=== PATIENT | female | born 1990 | race Caucasian/White ===

== ENCOUNTER 2020-11-11 21:29 | Emergency (ER) | payer MEDICAID, SELFPAY ==
[2020-11-12 01:08] VITALS: BP 144/94; PULSE 96; RESP 20; TEMP 36.7; O2SAT 98; BMI 20.6
--- NOTE | 2020-11-12 01:36 | PC.NURSE ---
Patient doesn't want any treatment for her dog bite. She has a scheduled running test tomorrow and wants a medical opinion as to whether she will be okay to run tomorrow or if she will make the injury worse. Patient also does not want to report the dog bite.
--- NOTE | 2020-11-12 01:49 | ED_ITS ---
HPI - Animal Bite General Chief Complaint: Animal Bite Stated Complaint: Hematoma Time Seen by Provider: 11/12/20 01:25 Source: patient Mode of arrival: ambulatory Limitations: no limitations History of Present Illness HPI narrative: Is a 29 old female patient presented to the ED complaining of left calf pain, left calf puncture wound. She states she was bitten by a dog, the dog is vaccinated for rabies MD complaint: animal bite Onset (ago): hour(s) (6) Animal: dog Description of animal: household pet Mechanism: bite Location: other (RT calf) Pain description: dull Context: unprovoked Associated symptoms: none Related Data Previous Rx's Medication Instructions Recorded amoxicillin 500 mg tablet 500 mg PO TID #15 tab 11/12/20 Allergies Allergy/AdvReac Type Severity Reaction Status Date / Time guaifenesin [From MUCINEX] Allergy Unknown RASH Verified 11/12/20 01:05 Review of Systems Review of Systems: Yes all other systems are reviewed and are negative Constitutional: Constitutional: Reports no additional constitutional complaints Cardiovascular: Cardiovascular: Reports no additional cardiovascular com plaints Respiratory: Respiratory: Reports no additional respiratory complaints Gastrointestinal: Gastrointestinal: Denies abdominal pain, Denies diarrhea and Denies loose stools Musculoskeletal: Musculoskeletal: Reports no additional musculoskeletal complaints Integumentary/Breasts: Skin/Breast: Reports system reviewed and no additional complaints, except as docu Neurologic: Reports system reviewed and no additional complaints, except as documented Psychiatric: Psychiatric: Reports no additional psychiatric complaints Endocrine: Endocrine: Reports no additional endocrine complaints PMFSH Past Medical History Medical History No known health problems Surgical History No history of previous surgery Social History Social History Alcohol intake: unknown Patient Tobacco Use Status: Tobacco use Unknown Use of substances other than those prescribed or required for medical reasons: Unknown Advance Directives: No Patient : No Physical Exam Vital Signs: Vital Signs: Last Vital Signs Temp 98.1 F 11/12/20 01:08 Pulse 96 11/12/20 01:08 Resp 20 11/12/20 01:08 BP 144/94 H 11/12/20 01:08 Pulse Ox 98 11/12/20 01:08 Body Mass Index 20.6 Const: General: cooperative Orientation/consciousness: patient oriented x3 HENMT: Head: Yes normal to inspection and Yes No palpable skull fracture present Mouth: Normal oral and palatal mucosa present Throat: Yes posterior oropharynx normal Neck: Neck: Yes normal visual inspection, Yes full ROM and Yes no lymphadenopathy Thyroid: Thyroid normal Chest: Chest palpation & inspection: normal inspection of the chest and normal palpation of entire chest wall Resp: Effort & Inspection: normal respiratory effort and able to speak in complete sentences Auscultation: clear to auscultation bilaterally Cardio: Jugular venous distension: no JVD Rate: regular rate Rhythm: regular rhythm GI: Inspection: Yes normal to inspection Palpation (GI): Soft to palpation, not firm, nontender and no guarding Percussion: Yes normal to percussion Auscultation: normal bowel sounds : General: Yes no CVA tenderness Back/Spine/Pelvis: Back: no CVA tenderness Skin: General skin exam: no rashes or lesions noted Lesions: no lesions Neuro: General: patient oriented x3 Extrem: Other: rt leg punture wound/ hematoma in the calf area present Discharge Plan Discharge Clinical Impression: Bite by animal, Dog bite Patient Disposition: Home, Self-Care Instructions: Animal Bite (ED) Additional Instructions: Rest the keep the leg elevated the tech today amoxicillin as directed ice Prescriptions: New amoxicillin 500 mg tablet 500 mg PO TID Qty: 15 RF: 0 Referrals: Berta Rutledge MD [Primary Care Provider] - 2 days Stand Alone Forms: Work/School Release Interventions: ED Discharge Assessment Last Done: 11/12/20 02:11 Discharge Date/Time: 11/12/20 02:12
[2020-11-12] MEDS: Amoxicillin 500 MG CAPSULE PO (02:09)
== END 2020-11-12 02:12 | disposition home or self-care (01) ==
PROVIDERS: Emergency Provider Emergency Medicine; PCP Family Medicine
DX: S81.852A Open bite, left lower leg, initial encounter (principal); M79.605 Pain in left leg; W54.0XXA Bitten by dog, initial encounter; Y93.9 Activity, unspecified; Y92.9 Unspecified place or not applicable; Y99.9 Unspecified external cause status; Z79.899 Other long term (current) drug therapy
CPT/HCPCS: 99284

== ENCOUNTER 2020-11-25 20:39 | Emergency (ER) | payer MEDICAID, SELFPAY ==
[2020-11-25 20:42] VITALS: PULSE 84; RESP 17; TEMP 36.7; O2SAT 98; BMI 20.6
--- NOTE | 2020-11-25 22:48 | ED_ITS ---
HPI - General Adult General Chief complaint: Extremity Injury, Lower Stated complaint: Leg pain Time Seen by Provider: 11/25/20 22:31 Source: patient Mode of arrival: ambulatory Limitations: no limitations History of Present Illness HPI narrative: Patient complaining of Swelling of the right leg after dog bite on 11/12 had a huge hematoma at that time now for last few days noticed discoloration of that area with still the swelling left which is tender no surrounding erythema no fever no open wound Related Data Previous Rx's Medication Instructions Recorded amoxicillin 500 mg tablet 500 mg PO TID #15 tab 11/12/20 Allergies Allergy/AdvReac Type Severity Reaction Status Date / Time guaifenesin [From MUCINEX] Allergy Unknown RASH Verified 11/25/20 20:42 Review of Systems Review of Systems: Yes all other systems are reviewed and are negative [facility] Past Medical History Medical History No known health problems Surgical History No history of previous surgery Social History Social History Alcohol intake: unknown Patient Tobacco Use Status: Tobacco use Unknown Advance Directives: No Advance Directives Information Provided: No Patient : No Physical Exam Vital Signs: Vital Signs: Last Vital Signs Temp 98.0 F 11/25/20 20:42 Pulse 84 11/25/20 20:42 Resp 17 11/25/20 20:42 Pulse Ox 98 11/25/20 20:42 Body Mass Index 20.6 Const: General: comfortable and no acute distress Extrem: Upper/lower leg/hip images: 1. 5 x 5 cm hematoma slight tenderness no surrounding erythema Procedures Abscess I/D Site: lower extremity (Right leg) Side (if applicable): right Technique: needle aspiration Amount of fluid expressed (mL): 5 Sent for culture/gram staining?: No Irrigation: No Packing used?: none Medical Decision Making [facility] Narrative Medical decision making narrative: Patient with residual hematoma right leg needle aspiration revealed 5 cc of dark old blood which was drained dressing was applied patient advised to applied pressure dressing Discharge Plan Discharge Clinical Impression: Hematoma Patient Disposition: Home, Self-Care Instructions: Hematoma (ED) Additional Instructions: Local care as advised Compression dressing using Ryan wrap as advised Prescriptions: No Action amoxicillin 500 mg tablet 500 mg PO TID Qty: 15 RF: 0 Stand Alone Forms: Work/School Release
--- NOTE | 2020-11-25 23:16 | PC.NURSE ---
AREA CLEANED AND DRAINED BY DR ANABEL SHAH APPLIED WITH COMPRESSION.
== END 2020-11-25 23:16 | disposition home or self-care (01) ==
PROVIDERS: Emergency Provider Internal Medicine; PCP Family Medicine
DX: S80.11XA Contusion of right lower leg, initial encounter (principal); R60.0 Localized edema; X58.XXXA Exposure to other specified factors, initial encounter; Y93.9 Activity, unspecified; Y92.9 Unspecified place or not applicable; Y99.9 Unspecified external cause status
CPT/HCPCS: 10060; 99283; 99284

== ENCOUNTER 2020-11-28 12:19 | Emergency (ER) | payer MEDICAID, SELFPAY ==
--- NOTE | ~2020-11-28 | US_ITS ---
EXAMINATION: US VENOUS ULTRASOUND WITH DOPPLER LOWER EXTREMITY, RIGHT CLINICAL INFORMATION: Swelling and pain COMPARISON: None TECHNIQUE: Ultrasound of the deep veins is performed from the hip to the calf with compression sonography and color and pulse Doppler assessment. Spectral analysis with color-flow imaging is performed. FINDINGS: There is normal venous compression and respiratory variation and augmented flow. The visualized common femoral vein, superficial femoral vein, profunda femoral vein, popliteal vein, and the trifurcation region shows no evidence of deep venous thrombosis. There is no significant popliteal fossa cyst. There is a 4 x 1.6 x 4.1 cm complex fluid collection in the proximal medial calf. Differential would include hematoma, abscess and ruptured Singh's cyst. US/US venous duplex LE RT IMPRESSION: No DVT demonstrated in the right lower extremity. 4 x 1.6 x 4.1 cm complex fluid collection in the proximal medial calf area differential would hematoma, abscess and ruptured Singh's cyst.
[2020-11-28 12:41] VITALS: BP 98/50; PULSE 74; RESP 18; TEMP 36.9; O2SAT 100; BMI 20.6
--- NOTE | 2020-11-28 13:23 | ED_ITS ---
HPI - General Adult General Chief complaint: Skin/Abscess/Foreign Body Stated complaint: wound check - pain Time Seen by Provider: 11/28/20 13:23 Source: patient Limitations: no limitations History of Present Illness HPI narrative: Patient presents the ER with right lower extremity pain secondary to recent dog bite and hematoma collection in the medial calf of the right lower leg. Patient was seen on the at that time had a needle aspiration was some blood was withdrawn at that time. The patient was put on antibiotics from the original dive bite which she finished which is amoxicillin. Patient states the area with a hematoma as his heartburn and pain is increased a little bit. Patient was concerned she may have a blood clot. Patient denies shortness of breath fever chills or any other complaints at this time. Symptoms mild to moderate pain 08/09 Related Data Previous Rx's Medication Instructions Recorded amoxicillin 500 mg tablet 500 mg PO TID #15 tab 11/12/20 Allergies Allergy/AdvReac Type Severity Reaction Status Date / Time guaifenesin [From MUCINEX] Allergy Unknown RASH Verified 11/25/20 20:42 Review of Systems Constitutional: Constitutional: Denies chills, Denies fever(s) and Denies weakness ENT: Denies sore throat Cardiovascular: Cardiovascular: Denies chest pain and Denies dyspnea Respiratory: Respiratory: Denies cough and Denies dyspnea Gastrointestinal: Gastrointestinal: Denies nausea and Denies vomiting Musculoskeletal: Comments: Right calf pain swelling Integumentary/Breasts: Skin/Breast: Reports change in pigmentation Comments: Positive ecchymosis right calf positive color change Neurologic: Denies weakness Endocrine: Endocrine: Reports no additional endocrine complaints Hematologic/Lymphatic: Hematologic/Lymphatic: Reports no additional hematologic/lymphatic complaints Allergic/Immunologic: Allergic/Immunologic: Denies urticaria PMFSH Past Medical History Attestation statement: The following information was validated with the patient. Medical History No known health problems Surgical History No history of previous surgery Social History Social History Alcohol intake: unknown Patient Tobacco Use Status: Tobacco use Unknown Advance Directives: No Advance Directives Information Provided: Yes Physical Exam Vital Signs: Vital Signs: Last Vital Signs Temp 98.4 F 11/28/20 12:41 Pulse 74 11/28/20 12:41 Resp 18 11/28/20 12:41 BP 98/50 L 11/28/20 12:41 Pulse Ox 100 11/28/20 12:41 Body Mass Index 20.6 vital signs have been reviewed as normal and appeared to be correct. Blood pressure normal. Heart rate normal. Respiration rate normal. Temperature normal. Oxygen saturation normal. Appearance: Alert. Oriented X3. No acute distress. Head: Normal external exam. Normocephalic. Atraumatic. Eyes: PERRLA. EOMI. ENT: Pharynx normal. Uvula midline. Moist mucous membranes. Neck: Soft full range of motion CVS: Heart regular rate and rhythm no murmurs and rubs Respiratory: Breath sounds are clear to auscultation bilaterally. No accessory muscle use noted. Back: No CVA tenderness. Full range of motion noted. Skin: Right medial calf some ecchymosis noted positive hematoma noted proximal calf. Extremities: Positive tenderness right medial calf proximal aspect. Positive cessation positive pulses no lymphangitis no induration Neuro: Oriented X 3. No motor deficit. No sensory deficit. Reflexes normal. Course Course Course Narrative: Right calf hematoma Right leg DVT Right leg cellulitis Right leg contusion Case discussed with Dr. Hines likely patient has a healing hematoma of the right calf will give duplex ultrasound rule out DVT at this time. 2:50 p.m. Ultrasounds negative for DVT Medical Decision Making Imaging Data Venous US: Radiologist's impression: [address] [id number] Ultrasound Report Signed Patient: Jose Juan Maradiaga MR#: [id number] : 1990 Acct:[id number] Age/Sex: 29 / F ADM Date: 11/28/20 Loc: HO.ED Attending Dr: Ordering Physician: Juarez Alvarez Date of Service: 11/28/20 Procedure(s): US venous duplex LE RT Accession Number(s): [id number] cc: Juarez Alvarez ~ EXAMINATION:? US VENOUS ULTRASOUND WITH DOPPLER LOWER EXTREMITY, RIGHT CLINICAL INFORMATION:? Swelling and pain COMPARISON:? None TECHNIQUE: Ultrasound of the deep veins is performed from the hip to the calf with compression sonography and color and pulse Doppler assessment. Spectral analysis with color-flow imaging is performed. FINDINGS: There is normal venous compression and respiratory variation and augmented flow. The visualized common femoral vein, superficial femoral vein, profunda femoral vein, popliteal vein, and the trifurcation region shows no evidence of deep venous thrombosis. ? There is no significant popliteal fossa cyst. There is a 4 x 1.6 x 4.1 cm complex fluid collection in the proximal medial calf. Differential would include hematoma, abscess and ruptured Singh's cyst. US/US venous duplex LE RT IMPRESSION: No DVT demonstrated in the right lower extremity. 4 x 1.6 x 4.1 cm complex fluid collection in the proximal medial calf area differential would hematoma, abscess and ruptured Singh's cyst. Dictated By: Justa Ballard MD Signed By: <Electronically signed by Justa Ballard MD in OV> 11/28/20 1434 DD/ 1335 TD/TT:? Medical Laboratory Assistant: TITO Discharge Plan Discharge Clinical Impression: Hematoma and contusion Patient Disposition: Home, Self-Care Instructions: Hematoma (ED) Additional Instructions: Rest elevation ultrasound was negative for blood clot Return if symptoms worsen Prescriptions: No Action amoxicillin 500 mg tablet 500 mg PO TID Qty: 15 RF: 0
== END 2020-11-28 15:07 | disposition home or self-care (01) ==
PROVIDERS: Emergency Provider Emergency Medicine Emergency Medical Services; PCP Family Medicine
DX: M79.604 Pain in right leg (principal); R60.0 Localized edema; Z79.899 Other long term (current) drug therapy
CPT/HCPCS: 93971; 99283; 99284